=== PATIENT | female | born 1985 | race Caucasian/White ===

== ENCOUNTER 2017-05-15 11:00 | Inpatient (IN) | payer OTHER ==
--- NOTE | ~2017-05-15 | PN ---
Unit #: [id number] #: [id number] Patient: STEPHANI HOLBROOK [id number] [facility] [address] [place] [address] [id number] MR#: [id number] NAME: STEPHANI HOLBROOK ROOM: P130 Age: 31 Sex: F Admission Date: 05/15/2017 : 1985 Attending Physician: Krystyna Moseley M.D. Admitting Physician: Krystyna Moseley M.D. Primary Care Physician: Primary Care Physician Charo CAPPS NOTES DATE May 18, 2017 DISCUSSION Ms. Holbrook is a 31-year-old white female, who was seen today and chart was reviewed and the case was discussed with the staff. She has been anxious, withdrawn, and rather seclusive to herself. Meanwhile, she has been cooperative with the treatment recommendations and she has been taking medications and tolerating them fairly well with no reported side effects. MENTAL STATUS EXAMINATION Young white female, who was casually dressed with fair personal hygiene and appears to be in no acute distress or discomfort. The patient was awake and alert on interaction with intact orientation. Her mood was anxious with a congruent affect. The patient denies any suicidal or homicidal ideations, and also denies any auditory or visual hallucinations. Her insight and judgment remain slightly impaired. TREATMENT PLAN 1. We will continue her on her current medications and treatment protocol, and will monitor her response to the medications, and make further adjustments as needed. 2. We will continue to followup. Dictated by... Elias Palma/harsh TD: 05/18/2017 11:20 JOB #: [id number] Unit #: [id number] #: [id number] Patient: STEPHANI HOLBROOK PROGRESS NOTES Page 1 of 1 X Krystyna Moseley MD PROGRESS NOTE
--- NOTE | ~2017-05-15 | PN ---
Unit #: [id number] #: [id number] Patient: STEPHANI HOLBROOK [id number] [facility] [address] [place] [address] [id number] MR#: [id number] NAME: STEPHANI HOLBROOK ROOM: P130 Age: 31 Sex: F Admission Date: 05/15/2017 : 1985 Attending Physician: Krystyna Moseley M.D. Admitting Physician: Krystyna Moseley M.D. Primary Care Physician: Primary Care Physician Charo CAPPS NOTES DATE OF SERVICE 05/17/2017 DISCUSSION Ms. Holbrook is a 31-year-old white female who was seen today. Chart was reviewed and case was discussed with the staff. She has been anxious, withdrawn, and rather seclusive to herself. Meanwhile, she has been cooperative with treatment recommendations though has been in distress and discomfort and rather seclusive to herself. MENTAL STATUS EXAMINATION Young white female who is casually dressed with marginal personal hygiene, appears to be in slight distress or discomfort. She was awake and alert with impaired attention and concentration. Her mood is anxious with congruent affect. She denies any suicidal or homicidal ideations. Her insight and judgment remain slightly impaired. TREATMENT PLAN 1. We will continue her on her current medications and treatment protocol. We will monitor her response and make further adjustments as needed. 2. We will continue to follow up. Dictated by... Krystyna Moseley M.D. IAA/hollyg TD: 05/17/2017 14:38 JOB #: [id number] [facility] PROGRESS NOTES Page 1 of 1 X Krystyna Moseley MD PROGRESS NOTE
--- NOTE | ~2017-05-15 | DS ---
Unit #: [id number] #: [id number] Patient: STEPHANI HOLBROOK [id number] [facility] [address] [place] [address] [id number] I MR#: [id number] NAME: STEPHANI HOLBROOK ROOM: 30 Age: 31 Sex: F Admission Date: 05/15/2017 : 1985 Discharge Date: 05/19/2017 Attending Physician: Krystyna Moseley M.D. Primary Care Physician: Primary Care Physician No DISCHARGE SUMMARY IDENTIFYING DATA Ms. Holbrook is a 31-year-old white female, who is a resident of [place], [place], and was self-referred to the hospital. DISCHARGE DIAGNOSES Psychiatric: Major depressive disorder, recurrent, moderate, without psychotic features. Medical: None. Stressors: Moderate psychosocial stressors. HISTORY OF PRESENT ILLNESS Please see initial psychiatric evaluation for details. PAST PSYCHIATRIC HISTORY Please see initial psychiatric evaluation for details. PAST MEDICAL HISTORY Please see initial psychiatric evaluation for details. HOSPITAL COURSE The patient was admitted to the adult [facility] and [facility] dependency [facility] at [facility] and was oriented to the hospital environment. Routine p.r.n. medications were initiated, and she was started back on her home medications, and detox protocol was initiated as well. She was closely monitored. She was taking the medications regularly and was tolerating them fairly well and was able to show a decent and therapeutic response and was willing to continue treatment on an outpatient basis, and as such, it was decided that she will be discharged home and will continue treatment on an outpatient basis. DISCHARGE CONDITION Stable. PROGNOSIS Fair. Dictated by... Elias Palma/abisai TD: 06/15/2017 14:15 Unit #: [id number] #: [id number] Patient: STEPHANI HOLBROOK JOB #: [id number] DISCHARGE SUMMARY Page 1 of 1 X Krystyna Moseley MD X DISCHARGE SUMMARY
--- NOTE | ~2017-05-15 | HP ---
Unit #: [id number] #: [id number] Patient: STEPHANI BURGOS [id number] [place] [address] [id number] MR#: [id number] NAME: STEPHANI BURGOS ROOM: P130 Age: 31 Sex: F Admission Date: 05/15/2017 : 1985 Attending Physician: Krystyna Moseley M.D. Admitting Physician: Krystyna Moseley M.D. Primary Care Physician: Primary Care Physician No HISTORY AND PHYSICAL HISTORY OF PRESENT ILLNESS Stephani is a 31 year old, admitted to [address] [place] [address] because of her drug use. She shoots methamphetamine. PAST MEDICAL HISTORY 1. History of illicit substance abuse to include IV meth. 2. History of alcohol abuse. 3. Hepatitis C. PAST SURGICAL HISTORY Nothing reported. ALLERGIES Penicillin. SOCIAL HISTORY Smokes one pack per day, drinks alcohol on occasion, admits to a history of illicit substance abuse to include IV meth. FAMILY HISTORY Medically noncontributory. REVIEW OF SYSTEMS CONSTITUTIONAL: No fever or chills. HEENT: Denies any sore throat, ear pain or runny nose. CARDIOVASCULAR: Denies chest pain, irregular heart rhythm or palpitations. CHEST: Denies shortness of breath or cough. No hemoptysis. GASTROINTESTINAL: Denies nausea, vomiting, diarrhea or chronic constipation. ENDOCRINE: Denies history of increased thirst or urination. No recent significant weight loss or gain. GENITOURINARY: Denies dysuria, frequency, or hematuria. SKIN: Denies any rashes. HEMATOLOGIC: Denies history of increased bleeding or bruising. MUSCULOSKELETAL: Denies any hot, swollen joints. No generalized muscle pain. NEUROLOGIC: Denies problems with vision or speech. No frequent, severe headaches. No numbness, tingling or weakness in any extremities. Denies loss of bladder or bowel control. CURRENT MEDICATIONS 1. Milk of magnesia p.r.n. 2. Maalox p.r.n. Unit #: [id number] #: [id number] Patient: STEPHANI BURGOS 3. Tylenol p.r.n. 4. Claritin 10 mg daily 5. Abilify 2 mg daily 6. Celexa 40 mg daily 7. Nicotine patch 14 mg daily PHYSICAL EXAMINATION GENERAL: Alert, well-nourished, no apparent distress. VITAL SIGNS: Blood pressure 110/68, heart rate 80, respirations 16, and temperature 98.6. WEIGHT: 115 pounds. HEIGHT: 5 feet 3 inches. SKIN: Warm and dry without rash or lesion. HEENT: Normocephalic. TMs not viewed. Oral and nasal passages clear. Conjunctivae clear. PERRLA. EOMs intact. NECK: Supple without lymphadenopathy or thyromegaly. HEART: Regular rate and rhythm without murmur. LUNGS: Clear. ABDOMEN: Soft, nontender. : Not done. EXTREMITIES: No evidence of cyanosis, clubbing or edema. Moves all without focal deficit. NEUROLOGICAL: Grossly within normal limits. Cranial Nerves: II: Visual lira are intact. III, IV AND : Extraocular movements are intact. Pupils are equal, round and reactive to light. V: Facial sensation is grossly normal. VII: Facial movements and expression are normal. VIII: Auditory acuity grossly intact. IX, X: Uvula is midline. Phonation is normal. XI: Patient shrugs shoulders and turns head normally. XII: Tongue protrudes in the midline. Sensory and Motor Function: Sensory and motor sensation is grossly normal. Motor: moves all extremities well. Coordination: Gait is normal. Deep Tendon Reflexes: Intact. IMPRESSION Psychiatric admission. RECOMMENDATIONS Psychiatric, per psychiatrist. MEDICAL I see no contraindications to participating in facility's activities. MEDICAL PROGNOSIS Good. MEDICAL CONDITION Stable. Dictated by... Lori Martinez P.A.-C. for Elias Solares/harsh TD: 05/16/2017 12:19 Unit #: [id number] #: [id number] Patient: STEPHANI BURGOS JOB #: [id number] HISTORY AND PHYSICAL Page 1 of 1 X Lori Martinez HISTORY AND PHYSICAL
--- NOTE | ~2017-05-15 | PA ---
Unit #: [id number] #: [id number] Patient: STEPHANI HOLBROOK [id number] [facility] [address] [place] [address] [id number] I MR#: [id number] NAME: STEPHANI HOLBROOK ROOM: P130 Age: 31 Sex: F Admission Date: 05/15/2017 : 1985 Date of Assessment: 05/15/2017 Attending Physician: Krystyna Moseley M.D. Admitting Physician: Krystyna Moseley M.D. Primary Care Physician: Primary Care Physician No PSYCHIATRIC ASSESSMENT DATE OF SERVICE 05/15/2017. IDENTIFYING DATA Ms. Holbrook is a 31-year-old single white female, who is a resident of [place], [place], and was self-referred to the hospital on a voluntary basis. CHIEF COMPLAINT "I'm trying to get sober." HISTORY OF PRESENT ILLNESS Ms. Holbrook is a 31-year-old white female with history of substance abuse and dependence, who was self-referred to the hospital stating that she has been trying to get sober and "I just got relapsed 2 months ago. I'm out of my depression and mood stabilizer and all of my psych medicines. I became suicidal and I can't stay sober and I've not been taking it right at least for few weeks and I don't know when the last time I had it." She does report increasing depression, anxiety, irritability, restlessness, feelings of hopelessness and helplessness, and suicidal ideation stating "I want to . I'm nothing. I'm nobody. I could slit my wrist. I could do heroin which I don't." She was seen to be a significant threat to herself and as such, recommendation for inpatient level of care for safety and stabilization was made and the patient was transferred to us. SUBSTANCE ABUSE HISTORY The patient reports history of alcohol, cocaine, opioids, and methamphetamine abuse, and currently she reports IV opioids and IV methamphetamine to be her drug of choice. PAST PSYCHIATRIC HISTORY The patient has had history of inpatient psychiatric hospitalization at several facilities including [facility], [facility], at [facility], and [facility] and has been diagnosed and treated for bipolar disorder. Review of the medical records indicate that she is supposed to be on a combination of Abilify and Celexa, but has been off her medication for the last several weeks and as such, has been decompensating. PAST MEDICAL HISTORY Hepatitis C. ALLERGIES Unit #: [id number] #: [id number] Patient: STEPHANI HOLBROOK. PERSONAL AND SOCIAL HISTORY A 31-year-old white female, who reports that she is single, unemployed, and describes herself to be essentially homeless and has poor social support system. MENTAL STATUS EXAMINATION Young white female who was casually dressed fair personal hygiene, appears to be in no acute distress or discomfort. She was awake and alert on interaction with intact orientation. Her mood was anxious and depressed with a congruent affect. Her speech was slow and restricted in content. Her thought processes were disorganized with some looseness of associations and flight of ideas and suicidal ideations. Her insight and judgment remain significantly impaired. DIAGNOSTIC IMPRESSION Psychiatric: Bipolar disorder, most recent episode depressed, recurrent, moderate, without psychotic features; opioid dependence, moderate; methamphetamine dependence, moderate. Medical: None. Stressors: Moderate psychosocial stressors. TREATMENT PLAN 1. The patient has presented with history of substance abuse and mood disorder, and has been decompensating and will need inpatient hospitalization for safety and stabilization. We will start her back on her home medications including her Abilify and Celexa. We will monitor her response and make further adjustments as needed. 2. Supportive therapy was provided to the patient. ESTIMATED LENGTH OF STAY 5 to 7 days. ABILITY TO HELP SELF Limited. WILLINGNESS TO HELP SELF The patient appears to be willing to help self. STRENGTHS 1. Communicative. 2. Cooperative. PROBLEMS 1. Chronic dysphoric symptoms. 2. Poor social support system. DISCHARGE CRITERIA This will be contingent upon the patient's ability to show resolution of her depression and anxiety and her ability to stay safe to herself, particularly after discharge from the hospital. Dictated by... Krystyna Moseley M.D. IAA/modl Unit #: [id number] #: [id number] Patient: STEPHANI HOLBROOK TD: 05/16/2017 07:02 JOB #: [id number] PSYCHIATRIC ASSESSMENT Page 1 of 1 X LoreleiKrystyna Maradiaga MD X PSYCHIATRIC ASSESSMENT
--- NOTE | ~2017-05-15 | PN ---
Unit #: [id number] #: [id number] Patient: STEPHANI HOLBROOK [id number] [facility] [address] [place] [address] [id number] I MR#: [id number] NAME: STEPHANI HOLBROOK ROOM: P130 Age: 31 Sex: F Admission Date: 05/15/2017 : 1985 Attending Physician: Krystyna Moseley M.D. Admitting Physician: Krystyna Moseley M.D. Primary Care Physician: Primary Care Physician Charo CAPPS NOTES DATE OF SERVICE: 05/19/2017 SUBJECTIVE Ms. Holbrook is a 31-year-old white female, who was seen today and chart was reviewed, and case was discussed with the staff. She has been anxious, withdrawn, and rather seclusive to herself. Meanwhile, she has been cooperative with treatment recommendations and has been taking her medications and tolerating them fairly well with no reported side effects. MENTAL STATUS EXAMINATION Young white female who was casually dressed with fair personal hygiene, appears to be in no acute distress or discomfort. She was awake and alert on interaction with intact orientation. Her mood was anxious with a congruent affect. She denies any suicidal or homicidal ideations. Her insight and judgment remain slightly impaired. TREATMENT PLAN We will continue on her medications and treatment protocol. We will monitor her response to medications and make further adjustments as needed. Dictated by... Elias Palma/abisai TD: 05/20/2017 00:36 JOB #: [id number] [facility] PROGRESS NOTES Page 1 of 1 X Krystyna Moseley MD PROGRESS NOTE
--- NOTE | ~2017-05-15 | PN ---
Unit #: [id number] #: [id number] Patient: STEPHAIN HOLBROOK [id number] [facility] [address] [place] [address] [id number] I MR#: [id number] NAME: STEPHANI HOLBROOK ROOM: P130 Age: 31 Sex: F Admission Date: 05/15/2017 : 1985 Attending Physician: Krystyna Moseley M.D. Admitting Physician: Krystyna Moseley M.D. Primary Care Physician: Primary Care Physician Charo CAPPS NOTES DATE May 16, 2017 DISCUSSION Ms. Holbrook is a 31-year-old white female, who was seen today and chart was reviewed and the case was discussed with the staff. She has been anxious, withdrawn, and rather seclusive to herself. Meanwhile, she has been cooperative with the treatment recommendations and she has been taking the medications and tolerating them fairly well with no reported side effects. MENTAL STATUS EXAMINATION Young white female, who was casually dressed with fair personal hygiene and appears to be in no acute distress or discomfort. She was awake and alert on interaction with intact orientation. Her mood was anxious with a congruent affect. The patient denies any suicidal or homicidal ideations. Her insight and judgment remain slightly impaired. TREATMENT PLAN 1. We will continue her on her current medications and treatment protocol, and will monitor her response to the medications, and make further adjustments as needed. 2. We will continue to followup. Dictated by... Elias Palma/harsh TD: 05/16/2017 11:55 JOB #: [id number] Unit #: [id number] #: [id number] Patient: STEPHANI HOLBROOK PROGRESS NOTES Page 1 of 1 X Krystyna Moseley MD PROGRESS NOTE
[2017-05-16 10:02] LABS: BASOPHIL% 0.8 % (0-2.5); EOSINOPHIL# 0.1 X10e3 (0-0.7); EOSINOPHIL% 2.1 % (0.0-7.0); HEMATOCRIT 40.4 % (35.0-45.0); HEMOGLOBIN 13.4 gm/dL (12.0-16.0); LYMPHOCYTE# 2.8 X10e3 (1.0-3.5); LYMPHOCYTE% 48.7 % (17.0-45.0); MEAN CELL VOLUME 92.3 FL (83-96); MEAN CORPUSCULAR HEMOGLOBIN 30.5 PG (28-34); MEAN CORPUSCULAR HGB CONC 33.1 g/dL (30-36); MEAN PLATELET VOLUME 8.2 FL (6.5-11.5); MONOCYTE# 0.4 X10e3 (0-1.0); MONOCYTE% 7.6 % (3.0-12.0); NEUTROPHIL# 2.4 X10e3 (1.5-7.1); NEUTROPHIL% 40.8 % (40-75); PLATELET COUNT 267 X10e3 (140-420); RED BLOOD COUNT 4.38 X10e (3.90-5.30); RED CELL DISTRIBUTION WIDTH 14.1 % (11.0-15.5); WHITE BLOOD COUNT 5.8 X10e3 (4.0-10.5)
[2017-05-16 10:11] LABS: DIFF IND NO
[2017-05-16 10:43] LABS: ALBUMIN SERUM 3.8 g/dL (3.5-5.0); BILIRUBIN,TOTAL 0.6 mg/dL (0.2-2.0); CALCIUM SERUM 8.7 mg/dL (8.4-10.2); CREATININE SERUM 0.5 mg/dL (0.6-1.4); GLOM FILT RATE Estimated 129.9 mL/min (>60); POTASSIUM 4.4 mmol/L (3.5-5.1); PROTEIN TOTAL SERUM 6.3 g/dL (6.0-8.3)
== END 2017-05-19 10:14 | disposition home or self-care (01) | DRG 885 ==
LOC: P1S 12:51
PROVIDERS: Psychiatry & Neurology Psychiatry
DX: F31.32 Bipolar disorder, current episode depressed, moderate (principal); F11.20 Opioid dependence, uncomplicated; F15.20 Other stimulant dependence, uncomplicated; Z59.0 Homelessness; Z88.0 Allergy status to penicillin; Z86.19 Personal history of other infectious and parasitic diseases
CPT/HCPCS: 80053; 84703; 85025